=== PATIENT | female | born 1970 | race Caucasian/White ===

== ENCOUNTER 2025-05-23 14:24 | Inpatient (IN) | payer MEDICAID, OTHER ==
[~2025-05-23] VITALS: Ht 162.6 cm; Wt 50.3 kg
[2025-05-23 14:25] VITALS: O2SAT 98
[2025-05-23] MEDS: MORPHINE SULFATE 4 MG/ML INJ (FOR IV/IM USE) IV ONE (14:58)
[2025-05-23] MEDS: ONDANSETRON HCL 4MG/2ML INJ IV ONE (14:58)
[2025-05-23 15:07] LABS: BASOPHILS % 0.7 % (0.0-2.0); EOSINOPHILS % 1.8 % (0.0-5.0); HEMATOCRIT. 36.7 % (36.0-48.0); HEMOGLOBIN. 12.3 g/dL (12.0-16.0); LYMPHOCYTES % 18.7 % (20.0-50.0); MEAN PLATELET VOLUME 9.6 fl (7.4-10.4); MONOCYTES % 7.2 % (2.0-8.0); NEUTROPHILS % 71.6 % (40.0-76.0); PLATELET 225 x1000/uL (130-400); RED BLOOD CELL COUNT 4.04 mill/uL (4.2-5.4); RED CELL DISTRIBUTION WIDTH 12.4 % (11.6-14.6)
[2025-05-23 15:25] LABS: CREATININE 0.9 mg/dL (0.6-1.0); UREA NITROGEN BLOOD 17 mg/dL (9-23)
[2025-05-23 15:26] LABS: PROTEIN TOTAL 7.2 g/dL (6.0-8.3)
[2025-05-23 15:27] LABS: ASPARTATE AMINOTRANSFERASE 11 IU/L (<34); BILIRUBIN DIRECT < 0.1 mg/dL (<=3.0); BILIRUBIN TOTAL 0.3 mg/dL (0.1-1.0)
[2025-05-23 19:16] LABS: CLARITY URINE CLEAR (CLEAR); COLOR URINE YELLOW (YELLOW); GLUCOSE URINE 3+ (NEGATIVE); KETONES URINE TRACE (NEGATIVE); LEUKOCYTE ESTERASE URINE NEGATIVE (NEGATIVE); NITRITE URINE NEGATIVE (NEGATIVE); OCCULT BLOOD URINE 2+ (NEGATIVE); PH URINE 5.5 (4.5-8.0); PROTEIN URINE 1+ (NEGATIVE); SPECIFIC GRAVITY URINE 1.054 (1.005-1.030); UROBILINOGEN URINE 0.2 E.U./dL (0.2-1.0)
[2025-05-23 19:35] LABS: BACTERIA URINE NONE SEEN; SQUAMOUS EPITHELIAL CELL URINE RARE /lpf (RARE/1+); WBC URINE 0-2 /hpf (0-2)
[2025-05-23 21:30] VITALS: BP 139/90; PULSE 80; RESP 19; TEMP 36.2; O2SAT 99
[2025-05-23] MEDS ORDERED: DEXTROSE 50% WATER 50ML SYRINGE IV PRN (22:45)
[2025-05-23] MEDS: HYDROCODONE/ACETAMINOPHEN 10/325MG TABLET PO PRN (23:08)
[2025-05-23] MEDS: INSULIN GLARGINE 100 UNITS/ML SUBCUT SCH (23:28)
[2025-05-23] MEDS ORDERED: IOHEXOL-300 100 ML BOTTLE ONE (23:32)
[2025-05-24] VITALS (7 sets, daily range): BP systolic 102–141; BP diastolic 60–92; PULSE 64–83; RESP 15–19; TEMP 36.1956–36.8; O2SAT 98–100
[2025-05-24] MEDS: BLOOD SUGAR DIAGNOSTIC STRIP TEST SCH (06:37)
[2025-05-24] MEDS: PANTOPRAZOLE 40MG DR TABLET PO SCH (06:37)
[2025-05-24 07:06] LABS: BASOPHILS % 0.7 % (0.0-2.0); EOSINOPHILS % 2.2 % (0.0-5.0); HEMATOCRIT. 36.3 % (36.0-48.0); HEMOGLOBIN. 12.4 g/dL (12.0-16.0); LYMPHOCYTES % 32.5 % (20.0-50.0); MEAN PLATELET VOLUME 10.1 fl (7.4-10.4); MONOCYTES % 5.8 % (2.0-8.0); NEUTROPHILS % 58.8 % (40.0-76.0); PLATELET 213 x1000/uL (130-400); RED BLOOD CELL COUNT 4.04 mill/uL (4.2-5.4); RED CELL DISTRIBUTION WIDTH 12.0 % (11.6-14.6)
[2025-05-24 07:12] LABS: CREATININE 0.7 mg/dL (0.6-1.0); TRIGLYCERIDE 228 mg/dL (0-150)
[2025-05-24 07:13] LABS: LDL CHOLESTEROL 118 mg/dL (5-100); UREA NITROGEN BLOOD 19 mg/dL (9-23)
[2025-05-24] MEDS: INSULIN LISPRO 100 UNITS/ML SUBCUT SCH (08:13)
[2025-05-24] MEDS: ONDANSETRON HCL 4MG/2ML INJ IV PRN (09:08)
[2025-05-24] MEDS ORDERED: NALOXONE HCL 0.4MG/ML VIAL IV PRN (14:15)
[2025-05-24] MEDS: INSULIN GLARGINE 100 UNITS/ML SUBCUT SCH (22:16)
[2025-05-25] VITALS: BP 124/83; PULSE 73; RESP 19; TEMP 36.4; O2SAT 98
[2025-05-25 04:00] VITALS: BP 147/90; PULSE 74; RESP 18; TEMP 36.8; O2SAT 97
[2025-05-25 08:00] VITALS: BP 117/83; PULSE 85; RESP 18; TEMP 36.3; O2SAT 96
[2025-05-25 12:00] VITALS: BP 140/75; PULSE 89; RESP 18; TEMP 36.6; O2SAT 97
[2025-05-25 14:29] VITALS: BP 140/70; PULSE 89; RESP 16; TEMP 97.5
[2025-05-25 14:53] VITALS: BP 140/70; PULSE 86; RESP 16
== END 2025-05-25 15:30 | disposition home or self-care (01) | DRG 282 ==
LOC: ER 14:24 → EDBEDREQTM 18:14 → EDBEDREQ 18:14 → ENRESERV 20:46 → 8EST 21:19
PROVIDERS: ADMIT Internal Medicine; ATTEND Internal Medicine
DX: K85.90 Acute pancreatitis without necrosis or infection, unspecified (principal); E11.40 Type 2 diabetes mellitus with diabetic neuropathy, unspecified; I10 Essential (primary) hypertension; E11.65 Type 2 diabetes mellitus with hyperglycemia
CPT/HCPCS: 36415; 74177; 80048; 80061; 80076; 81003; 82962; 83036; 83735; 85025; 93005; 99285; J1815; J2270; J2405; Q9967